=== PATIENT | female | born 1970 | race Caucasian/White ===

== ENCOUNTER 2018-08-04 08:38 | Emergency (ER) | payer OTHER ==
--- NOTE | 2018-08-04 09:27 | EDPHY ---
General - History Smoking Status: Never smoked Time Seen by Provider: 08/04/18 09:20 Narrative: CLINICAL IMPRESSION: Left flank pain, nausea ASSESSMENT/PLAN: Patient is a 47-year-old female with no significant medical history who presents to the emergency department with left flank pain radiating into her left lower abdomen and nausea. Patient is afebrile, she is uncomfortable appearing however not toxic-appearing. Her abdomen was soft with very mild tenderness to palpation in the left lower quadrant, no peritoneal signs and no evidence of a surgical abdomen; left CVA tenderness. CBC revealed a white blood cell count of 9.8, vital signs were reviewed and there was no evidence of sepsis or serious bacterial illness. BMP revealed no significant metabolic abnormality, creatinine mildly elevated at 1.2. UA with turbid appearance, 5-10 WBCs, urine sent for culture. CT abdomen and pelvis w/out revealed 4 x 5 mm stone in the left mid ureter with moderate hydronephrosis. She was also noted to have a 2.5 cm lesion on her liver which was discussed with her, she understands that she will need a follow-up ultrasound done as an outpatient through her PCP. History and physical examination is consistent with left ureteral stone with associated hydronephrosis, patient with no significant leukocytosis and no constitutional symptoms, I do not suspect infected stone. She did have WBC's noted in her urine, will treat conservatively with Ceftin. Patient was given 1 L of IV fluids, Flomax and a single dose of narcotic with improvement of symptoms in the emergency department. At this time I have considered other etiologies of his pain to include appendicitis, cholecystitis, pancreatitis, ACS , perforated viscus, diverticulitis, hernia, AAA, mesenteric ischemia, herpes zoster or additional emergent intra-abdominal process however low clinical suspicion. On repeat examination and prior to discharge the patient reports that she is feeling better, her abdomen remained soft and nontender without evidence of a surgical abdomen. The patient is well established with their primary care provider and will call to schedule an appointment for repeat examination as well. She was also provided a urology consult. She was a given a strainer for home. Conservative return precautions discussed- patient will return for development of fever, persistent nausea or vomiting, signs of dehydration, chest pain, shortness of breath, abdominal pain, worsening or uncontrolled flank pain, urinary retention, dysuria, hematuria or for any other concerning symptom. The patient verbalizes understanding and he is in agreement with this plan. DIFFERENTIAL DX: Flank pain including but not limited to musculoskeletal causes, kidney stone, pyelonephritis, shingles, and intra-abdominal causes such as diverticulitis and appendicitis. CHIEF COMPLAINT: Left flank pain, nausea HPI: Patient is a 47-year-old female with a history of cleft palate, no other significant medical history who presents to the emergency department with complaints of left flank pain and nausea. Patient was recently traveling, on Wednesday when she traveled to [place] she noticed some intermittent discomfort in her left flank. It was intermittently bothersome however tolerable. Patient reports significant increase in her flank pain today with radiation down into her left lower quadrant. She denies ever experiencing anything like this before, no history of kidney stones. She denies any trauma or injury, she has no midline neck or back pain. She has had no fevers, chills , chest pain or shortness of breath. She has had low-grade nausea however denies any vomiting. She denies any pelvic pain, vaginal pain or vaginal discharge. Patient denies any constipation or diarrhea however has had increased stooling today. Denies any melena or hematochezia. She has had no urinary symptoms to include dysuria, hematuria or increased frequency. PMH: Cleft palate Pertinent Past Surgical History: Cleft palate repair Family History: Noncontributory Social History: Denies alcohol abuse, illicit drug use or smoking REVIEW OF SYSTEMS: All other systems negative Constitutional: No fever, no chills, appetite change. Eyes: No discharge, vision change ENT: No sore throat, congestion, ear pain. Cardiovascular: No chest pain, no palpitations. Respiratory: No cough, no shortness of breath. Gastrointestinal: Nausea, abdominal pain. Genitourinary: Left flank pain. No hematuria, dysuria, pelvic pain. Musculoskeletal: No back pain, joint swelling, joint pain, myalgias. Skin: No rashes, color change. Neurological: No headache, dizziness, weakness. PHYSICAL EXAM: General Appearance: Well-developed, very uncomfortable appearing however not toxic-appearing. HENT: Normocephalic, atraumatic. Bilateral external ears are normal. Bilateral tympanic membranes are normal with pearly pradhan reflex. Nares are clear, mucosa is pink. Oropharynx is clear however mildly dry, uvula is midline. There is no tonsillar enlargement or exudate. The dentition is normal. Eyes: PERRLA, no acute vision change, nystagmus, swelling, discharge, pain or photosensitivity. Conjunctiva pink, no pallor or injection. Neck: Supple, nontender, no lymphadenopathy, no midline pain, FROM, no meningismus. Respiratory: There are no retractions, lungs are clear to auscultation. Cardiac: Regular rate and rhythm, no murmurs or gallops. Gastrointestinal: Abdomen is soft, bowel sounds normal. Patient has very mild tenderness to palpation in the left mid and lower quadrant. No masses/hernia, no rigidity, guarding or focal peritoneal findings. Significant left CVA tenderness. Neurological: Alert and oriented x 3, CN 2-12 grossly intact, normal gait no ataxia, DTR's intact, normal sensation and strength Skin: Warm, dry, no rashes, no nodules on palpation. Musculoskeletal: Extremities are symmetrical, full range of motion, no tenderness, deformity, swelling, or erythema. Psychiatric: Patient is oriented X 3, there is no agitation. PERC Negative. MEDICAL DECISION MAKING: Patient was seen independently. Secondary supervising physician at time of evaluation was Dr. Fraser. Diagnosis: Left Ureteral stone, moderate hydronephrosis. New, requires workup Summary: See Assessment and Plan for summary of ED visit Clinical lab tests: Yes. Independent visualization of images, tracing, or specimens: Yes. Decision to obtain medical records or history from someone other than the patient: No Review / Summarize previous medical records: Yes Discussed patient with another provider: Yes, Dr. Fraser Patient Progress: Stable, discharged. (Zara Hernandez) Discussion: The patient was evaluated and managed by the Physician Carpenter Supervisor [employer]en [employer]. I discussed the patient's presentation and course with the physician salon shampoo assistant and agree with the evaluation. My co-signature indicates that I have reviewed this chart and I agree with the findings and plan of care as documented. I am the secondary supervising physician. (Faiza Fraser) - Objective Vital Signs: Initial Vital Signs Temperature (C) 36.6 C 08/04/18 08:43 Heart Rate 73 08/04/18 08:43 Respiratory Rate 16 08/04/18 08:43 Blood Pressure 124/79 H 08/04/18 08:43 O2 Sat (%) 100 08/04/18 08:43 O2 Delivery Mode Room Air Allergies/Adverse Reactions: hydrocodone Allergy (Verified 08/04/18 11:55) ibuprofen [From Advil] Allergy (Verified 08/04/18 11:55) tramadol Allergy (Verified 08/04/18 11:55) Vomiting Home Medications: Medication Instructions Recorded Naproxen Sodium [Aleve 220 MG (*)] 220 mg PO BID PRN 04/24/16 Ondansetron Odt [Zofran Odt 4 mg 4 mg PO Q8 PRN #10 tab 08/04/18 (*)] Tamsulosin HCl [Flomax 0.4 MG (*)] 0.4 mg PO DAILY #10 cap 08/04/18 oxyCODONE IR [Oxycodone Ir (*)] 5 mg PO Q4 PRN #10 tab 08/04/18 Laboratory Results: Laboratory Results 08/04/18 09:48 08/04/18 09:30 Medications Given: Discontinued Medications Fentanyl (Sublimaze) 50 mcg IVP ONCE ONE Stop: 08/04/18 09:29 Last Admin: 08/04/18 09:36 Dose: 50 mcg Sodium Chloride (Ns) 1,000 mls @ 0 mls/hr IV ONCE ONE PRN Reason: Wide Open Stop: 08/04/18 09:29 Last Admin: 08/04/18 09:36 Dose: 1,000 mls Ondansetron HCl (Zofran) 4 mg IVP Q4 PRN PRN Reason: Nausea/Vomiting, Can't Take PO Stop: 01/31/19 09:27 Last Admin: 08/04/18 09:36 Dose: 4 mg Oxycodone HCl (Oxycodone Ir) 5 mg PO EDNOW ONE Stop: 08/04/18 11:08 Last Admin: 08/04/18 11:12 Dose: 5 mg Tamsulosin HCl (Flomax) 0.4 mg PO EDNOW ONE Stop: 08/04/18 11:53 Last Admin: 08/04/18 12:05 Dose: 0.4 mg Point of Care Test Results: Chemistry 08/04/18 09:54 POC Sodium 140 mEq/L mEq/L (135-145) POC Potassium 3.7 mEq/L mEq/L (3.3-5.0) POC Chloride 105 mEq/L mEq/L (97-110) POC Total CO2 20 mEq/L L mEq/L (22-31) POC BUN 13 mg/dL mg/dL (7-23) POC Creatinine 1.2 mg/dL H mg/dL (0.6-1.0) POC Glucose 94 mg/dL mg/dL (70-100) ISTAT H&H 08/04/18 09:54 POC Hgb 15.3 gm/dL gm/dL (12.6-16.3) POC Hct 45 % % (38-47) Departure - Departure Disposition: Home, Routine, Self-Care Clinical Impression: Ureteral stone with hydronephrosis Condition: Good Instructions: Ureteral Stones (ED) Additional Instructions: DISCHARGE INSTRUCTIONS FROM YOUR DOCTOR Thank you for visiting our emergency department today. Please keep in mind that discharge from the emergency department does not mean that there is nothing wrong - it simply means that we have not identified an emergency condition that requires further evaluation or treatment in the hospital. You should always plan to follow up with primary care for re-evaluation of your condition in the next 2-3 days. If you have been referred to a specialist, please call as soon as possible ( today or tomorrow) to schedule your follow up appointment at the appropriate time. Rest, push fluids (LOTS OF WATER), clear liquid diet then BRAT diet (bananas, rice, applesauce, toast) --if nauseated, slowly advance diet as tolerated. Avoid fatty, spicy, and milk containing foods until feeling better, until the nausea resolves. Urinate regularly. You should be hydrated enough that your urine is almost clear. Urinate after intercourse if sexually active. Follow your symptoms closely. Zofran as prescribed as needed for recurrent nausea and/or development of vomiting. Tylenol every 4-6 hours as directed as needed for less severe pain. Do not exceed 4000 mg in 24 hours. Take Flomax, this is a smooth muscle dilator and can cause low blood pressure. I would like you to take this at night before you go to bed. Please sit and stand up slowly when going from a seated to standing position. Follow up with PCP for Liver Ultrasound based on finding today on CT scan. You have been prescribed Percocet which is a narcotic. Please do not drive or operate machinery while taking this medication as it may make you drowsy. It can also be habit forming. This medication can also cause constipation, recommend taking 100 mg of Colace twice daily while taking this medication. This medication also contains Tylenol, please do not take other Tylenol containing products with this medication. Return immediately for any new symptoms ie: fever, chills, painful urination, inability to urinate, recurrent vomiting, concern for dehydration or worsening. Schedule a follow-up appointment with Dr. Woody listed to be seen in follow- up this week. Bring a copy of the test results with you to that appointment. Return for increased or unmanageable pain, inability to tolerate the medications , development of worsening back or flank pain, testicular or scrotal pain, redness or swelling, penile discharge, right lower abdominal pain, high fever, shaking chills, recurrent vomiting, vomiting blood, coffee grounds in the vomit , bloody stools or black tarry stools, burning or pain with urination, blood in the urine, inability to urinate, decreased urine output, evidence of dehydration , midline back pain, severe headache, neck pain or stiffness, dizziness, weakness, fainting, chest pain, shortness of breath, rapid or irregular heart beat, numbness, tingling, weakness in your arms or legs or for any other new, worsening or worrisome symptoms. People present with illnesses and injuries in different ways, and it is always possible that we have missed something. You may always return for re-evaluation if symptoms worsen or if they are not improving or if you develop new/different symptoms. Again, thank you for choosing our emergency department. We hope that you feel better. Referrals: Herlinda Gay PA [Primary Care Provider] - 1 day without Tom West MD [Medical Doctor] - 2-3 days, call for appt. Prescriptions: Ondansetron Odt [Zofran Odt 4 mg (*)] 4 mg PO Q8 PRN #10 tab PRN Reason: Nausea/Vomiting, Can'T Take Po oxyCODONE IR [Oxycodone Ir (*)] 5 mg PO Q4 PRN #10 tab PRN Reason: Pain, Severe Tamsulosin HCl [Flomax 0.4 MG (*)] 0.4 mg PO DAILY #10 cap
[2018-08-04] MEDS ORDERED: fentaNYL 100 MCG/2 ML INJ IVP ONE (09:28)
[2018-08-04] MEDS ORDERED: NS 1,000 ML IV ONE (09:28)
[2018-08-04] MEDS ORDERED: ONDANSETRON 4 MG/2 ML VIAL IVP PRN (09:28)
[2018-08-04 10:09] LABS: PLATELET COUNT 309 10^3/uL (150-400)
[2018-08-04] MEDS ORDERED: oxyCODONE IR 5 MG TAB PO ONE (11:07)
[2018-08-04] MEDS ORDERED: TAMSULOSIN HCL 0.4 MG CAP PO ONE (11:52)
[2018-08-04 12:14] VITALS: BP 110/74
== END 2018-08-04 12:16 | disposition home or self-care (01) ==
LOC: SUPCPDRO 08:38
DX: N13.2 Hydronephrosis with renal and ureteral calculous obstruction (principal)
CPT/HCPCS: 82435-PO; 82565-PO; 82947-PO; 84132-PO; 84295-PO; 84520-PO; 85014-ER; 96374; J2405; J3010

== ENCOUNTER → 2018-09-20 | Outpatient (CLI) | payer OTHER | LOC: BMCIMAGING 07:16 | PROVIDERS: ATTEND Family Medicine | DX: K76.89 Other specified diseases of liver (principal) ==